=== PATIENT | male | born 1980 | race African-American/Black ===

== ENCOUNTER 2018-05-09 19:25 | Emergency (ER) | payer SELFPAY ==
[2018-05-09 19:43] VITALS: BP 132/79
[2018-05-09] MEDS ORDERED: HYDROCODONE/ACETAMINOPHEN 5-325 MG (6 TAB/ER DISP) PO PRN (20:21)
[2018-05-09] MEDS ORDERED: PREDNISONE 20 MG TABLET PO ONE (20:22)
--- NOTE | 2018-05-09 20:26 | ER Document Report ---
HPI - HPI Patient complains to provider of: Right upper extremity pain Onset/Duration: Persistent Quality of pain: Achy Pain Level: 3 Context: Patient presents complaining of right upper extremity and back pain for the past several months that is worsened recently. Patient is right-hand dominant. Patient denies any injury to the extremity. Patient denies any neck pain or fever. Associated Symptoms: Other - Right upper extremity, right upper back pain. denies: Fever, Headache Exacerbated by: Movement Relieved by: Denies Similar symptoms previously: Yes Recently seen / treated by doctor: No - ROS ROS below otherwise negative: Yes Systems Reviewed and Negative: Yes All other systems reviewed and negative - CONSTITUTIONAL Constitutional: DENIES: Fever, Chills - NEURO Neurology: DENIES: Headache, Weakness - GASTROINTESTINAL Gastrointestinal: DENIES: Nausea, Patient vomiting - MUSCULOSKELETAL Musculoskeletal: REPORTS: Extremity pain - right arm and shoulder, Back Pain - DERM Skin Color: Normal Skin Problems: None Past Medical History - General Information source: Patient - Social History Smoking Status: Current Every Day Smoker Smoking Education Provided: Yes Frequency of alcohol use: Occasional Drug Abuse: None Occupation: Construction Family History: Reviewed & Not Pertinent Patient has suicidal ideation: No Patient has homicidal ideation: No Pulmonary Medical History: Reports: Hx Asthma Renal/ Medical History: Denies: Hx Peritoneal Dialysis Surgical Hx: Negative Vertical Provider Document - CONSTITUTIONAL Agree With Documented VS: Yes Exam Limitations: No Limitations General Appearance: WD/WN, No Apparent Distress - HEENT HEENT: Atraumatic, Normocephalic - NECK Neck: Normal Inspection, Supple. negative: Lymphadenopathy-Left, Lymphadenopathy-Right - RESPIRATORY Respiratory: Breath Sounds Normal, No Respiratory Distress - CARDIOVASCULAR Cardiovascular: Regular Rate, Regular Rhythm Pulses: Normal: Radial - BACK Back: Abnormal Inspection - Right trapezius muscle tenderness Notes: No cervical or spinal midline tenderness, step-off or deformity - MUSCULOSKELETAL/EXTREMETIES Musculoskeletal/Extremeties: MAMORENITA, FROM Notes: No tenderness to right shoulder joint - NEURO Level of Consciousness: Awake, Alert, Appropriate Motor/Sensory: No Motor Deficit, No Sensory Deficit Notes: Normal strength to bilateral upper extremities with normal muscle tone - DERM Integumentary: Warm, Dry, No Rash Course - Re-evaluation Re-evalutation: 05/09/18 20:23 Patient presents with radicular pain symptoms. Patient without any midline cervical spinal tenderness. No history of fever or drug use. Patient states that he has had this pain chronically for months. Patient denies any new traumatic injury. Good return precautions given. Patient encouraged to follow- up with orthopedics for further management. - Vital Signs Vital signs: Temp Pulse Resp BP Pulse Ox 98.2 F 93 20 132/79 H 97 05/09/18 19:42 05/09/18 19:42 05/09/18 19:42 05/09/18 19:42 05/09/18 19:42 Discharge - Discharge Clinical Impression: Radicular pain in right arm Condition: Stable Disposition: HOME, SELF-CARE Instructions: Oral Narcotic Medication ([facility]), Radiculopathy ([facility]), Steroid Medication Additional Instructions: Return immediately for any new or worsening symptoms Followup with your primary care provider, call tomorrow to make a followup appointment Follow-up with orthopedics for further evaluation, call Saturday for an appointment Prescriptions: Cyclobenzaprine HCl [Flexeril 10 Mg Tablet] 10 mg PO TID #15 tablet Prednisone [Deltasone 20 mg Tablet] 3 tab PO DAILY 4 Days tablet Forms: Smoking Cessation Education Referrals: [facility] [Provider Group] - Follow up as needed [facility] [Provider Group] - Follow up as needed
== END 2018-05-09 20:40 | disposition home or self-care (01) ==
LOC: ER 19:25
DX: M79.601 Pain in right arm (principal); M54.9 Dorsalgia, unspecified; F17.200 Nicotine dependence, unspecified, uncomplicated
CPT/HCPCS: 99283; J7512

== ENCOUNTER 2018-09-17 10:01 | Emergency (ER) | payer OTHER ==
[2018-09-17] MEDS ORDERED: HYDROCODONE/ACETAMINOPHEN 5-325 MG TABLET PO ONE (10:37)
[2018-09-17] MEDS ORDERED: DIPH/PERTUSS(ACELL)/TETANUS VAC/PF 0.5 ML SYR (>=10YO) IM ONE (10:37)
--- NOTE | 2018-09-17 10:39 | ER Document Report ---
HPI - HPI Patient complains to provider of: Right leg pain Time Seen by Provider: 09/17/18 10:31 Onset: Other - 2 days ago Onset/Duration: Persistent Quality of pain: Achy Pain Level: 3 Context: Patient states that he was getting out of his truck 3 days ago and slipped falling landing on a pole. Patient complains of right anterior tibial pain with a laceration. Patient denies any other injuries. Complains of pain with any weightbearing. Associated Symptoms: Other - Right leg pain, leg laceration Exacerbated by: Standing, Movement, Walking Relieved by: Denies Similar symptoms previously: No Recently seen / treated by doctor: No - ROS ROS below otherwise negative: Yes Systems Reviewed and Negative: Yes All other systems reviewed and negative - CONSTITUTIONAL Constitutional: DENIES: Fever - NEURO Neurology: DENIES: Weakness - GASTROINTESTINAL Gastrointestinal: DENIES: Nausea - MUSCULOSKELETAL Musculoskeletal: REPORTS: Extremity pain - DERM Skin Color: Normal Skin Problems: Laceration Past Medical History - General Information source: Patient - Social History Smoking Status: Current Every Day Smoker Smoking Education Provided: Yes Frequency of alcohol use: None Drug Abuse: None Occupation: Construction Family History: Reviewed & Not Pertinent Pulmonary Medical History: Reports: Hx Asthma Renal/ Medical History: Denies: Hx Peritoneal Dialysis Surgical Hx: Negative Vertical Provider Document - CONSTITUTIONAL Agree With Documented VS: Yes Exam Limitations: No Limitations General Appearance: WD/WN, No Apparent Distress - HEENT HEENT: Atraumatic, Normocephalic - NECK Neck: Normal Inspection - RESPIRATORY Respiratory: No Respiratory Distress - CARDIOVASCULAR Pulses: Normal: Posterior tibial - MUSCULOSKELETAL/EXTREMETIES Musculoskeletal/Extremeties: MAEW, FROM, Tender - Tenderness to proximal and middle third of right tibia. Patient with a 1 cm laceration to anterior aspect of right leg, No Edema - NEURO Level of Consciousness: Awake, Alert, Appropriate Motor/Sensory: No Motor Deficit - DERM Integumentary: Warm, Dry, Laceration - Right anterior tibia Course - Re-evaluation Re-evalutation: 09/17/18 13:[address] Fatmata mora patient presentation and imaging studies. Advises placing patient in a posterior and stirrup splint to the level of the knee. Advises having patient call the office for an appointment either on Saturday or Saturday for follow-up. - Vital Signs Vital signs: Temp Pulse Resp BP Pulse Ox 99.2 F 87 16 148/102 H 99 09/17/18 10:25 09/17/18 10:25 09/17/18 10:25 09/17/18 10:25 09/17/18 10:25 - Diagnostic Test Radiology reviewed: Image reviewed, Reports reviewed Procedures - Immobilization Right Leg Pre-Proc Neuro Vasc Exam: Normal Immobilizer type: Other - Posterior, stirrup Performed by: PCT Post-Proc Neuro Vasc Exam: Normal Alignment checked and good: Yes Discharge - Discharge Clinical Impression: Right tibial fracture Qualifiers: Encounter type: initial encounter Tibia location: shaft Fracture type: closed Fracture morphology: unspecified fracture morphology Qualified Code(s): S82.201A - Unspecified fracture of shaft of right tibia, initial encounter for closed fracture Leg laceration Qualifiers: Encounter type: initial encounter Laterality: right Qualified Code(s): S81.811A - Laceration without foreign body, right lower leg, initial encounter Condition: Stable Disposition: HOME, SELF-CARE Instructions: Use of Crutches ([facility]), Non-Sutured Laceration ([facility]), Prophylactic Antibiotic ([facility]), Tetanus Immunization Given ([facility]), Fractured Tibia ([facility]) Additional Instructions: Return immediately for any new or worsening symptoms Followup with your primary care provider, call tomorrow to make a followup appointment Call the orthopedic office today for an appointment. You should get an appointment for either Saturday or Saturday with Dr. Avilez, who I spoke with today about your case Prescriptions: Cephalexin Monohydrate [Keflex 500 mg Capsule] 500 mg PO Q6H 5 Days capsule Hydrocodone/Acetaminophen [Clover 5-325 mg Tablet] 1 tab PO Q6 PRN #15 tablet PRN Reason: Forms: Smoking Cessation Education, Return to Work Referrals: RONEY CALDWELL MD [ACTIVE STAFF] - 09/19/18
--- NOTE | 2018-09-17 11:18 | RADIOLOGY REPORT (SQ) ---
EXAM DESCRIPTION: TIBIA FIBULA RIGHT COMPLETED DATE/TIME: 09/17/2018 11:04 am REASON FOR STUDY: fall, leg injury COMPARISON: None. NUMBER OF VIEWS: Two views. TECHNIQUE: Two radiographic images acquired of the right tibia and fibula to include the knee and an kle in at least one projection. LIMITATIONS: None. FINDINGS: MINERALIZATION: Normal. BONES: There is a very subtle, nondisplaced, spiral type fracture of the mid tibial diaphysis, seen o n lateral views only. SOFT TISSUES: No obvious swelling or foreign body. OTHER: No other significant finding. IMPRESSION: There is a very subtle, nondisplaced, spiral type fracture of the mid tibial diaphysis, seen on lateral views only. Consider CT to further evaluate fracture anatomy. TECHNICAL DOCUMENTATION: JOB ID: [id number] [email or web address]- All Rights Reserved Reading location - IP/workstation name: [email or web address]
--- NOTE | 2018-09-17 12:53 | RADIOLOGY REPORT (SQ) ---
EXAM DESCRIPTION: CT RT LOWER EXTREMITY WITHOUT COMPLETED DATE/TIME: 09/17/2018 12:33 pm REASON FOR STUDY: RLE injury, ?fx COMPARISON: Same day radiographs TECHNIQUE: CT scan of the right tibia and fibula performed without intravenous or oral contrast. Im ages reviewed with soft tissue and bone windows. Reconstructed coronal and sagittal MPR images revie wed. All images stored on PACS. All CT scanners at this facility use dose modulation, iterative reconstruction, and/or weight based d osing when appropriate to reduce radiation dose to as low as reasonably achievable (ALARA). [facility]: Dose Right [facility]: CareDose [facility]: Dose Right [facility]: Teradose 4D [facility]: Smart Cov[employer] RADIATION DOSE: CT Rad equipment meets quality standard of care and radiation dose reduction techniq ues were employed. CTDIvol: 4.1 mGy. DLP: 207 mGy-cm. mGy. LIMITATIONS: None. FINDINGS: BONES: There are oblique, nondisplaced, apparently incomplete fracture lines of the proxim al to mid right tibial diaphysis (series 2, image 98, series 300, image 60). OTHER: No other significant finding. IMPRESSION: There are oblique, nondisplaced, apparently incomplete fracture lines of the proximal to mid right tibial diaphysis (series 2, image 98, series 300, image 60). These are of uncertain stabi lity as incomplete fractures are uncommon in skeletally mature adults. Consider orthopedic consultat ion. TECHNICAL DOCUMENTATION: JOB ID: [id number] Quality ID # [id number]: Final reports with documentation of one or more dose reduction techniques (e.g., Au tomated exposure control, adjustment of the mA and/or kV according to patient size, use of iterative reconstruction technique) 2010 [employer]- All Rights Reserved Reading location - IP/workstation name: [email or web address]
[2018-09-17 13:26] VITALS: BP 152/112
== END 2018-09-17 13:55 | disposition home or self-care (01) ==
LOC: ER 10:01
PROC: 2W3QX1Z Immobilization of Right Lower Leg using Splint (ICD-10-PCS; principal; 2018-09-17)
DX: S82.201A Unspecified fracture of shaft of right tibia, initial encounter for closed fracture (principal); M79.604 Pain in right leg; X58.XXXA Exposure to other specified factors, initial encounter; F17.200 Nicotine dependence, unspecified, uncomplicated; J45.909 Unspecified asthma, uncomplicated
CPT/HCPCS: 90471; 90715; 99284